=== PATIENT | male | born 1950 | race Caucasian/White ===

== ENCOUNTER 2020-04-11 14:32 | Observation (INO) | payer OTHER ==
[2020-04-11 16:14] VITALS: BMI 31.1
[2020-04-11 16:42] LABS: BASO % 0.8 % (0-2.0); EOS % 0.8 % (0-4.5); HEMATOCRIT 45.7 % (35.4-49); HEMOGLOBIN 15.5 GM/dL (11.7-16.9); LYMPH % 19.4 % (8-40); MCH 31.3 pg (25.7-33.7); MCHC 33.9 g/dl (32.0-35.9); MEAN CELL VOLUME 92.4 fl (80-96); MEAN PLT VOLUME 9.7 fl (7.5-11.1); MONO % 5.4 % (3.8-10.2); NEUT % 73.6 % (42.8-82.8); PLATELET COUNT 188 K/MM3 (134-434); RBC 4.95 M/mm3 (4.00-5.60); RDW 13.1 % (11.9-15.9); WHITE BLOOD COUNT 7.5 K/mm3 (4.0-10.0)
[2020-04-11 17:12] LABS: CHLORIDE 107 mmol/L (98-107); POTASSIUM 4.2 mmol/L (3.5-5.1); SODIUM 140 mmol/L (136-145)
[2020-04-11 17:14] LABS: ALBUMIN 3.8 g/dl (3.4-5.0); ANION GAP 9 MMOL/L (8-16); BLOOD UREA NITROGEN 15.4 mg/dL (7-18); CALCIUM 8.8 mg/dL (8.5-10.1); CO2 24 mmol/L (21-32); GLUCOSE,RANDOM 90 mg/dL (74-106)
[2020-04-11 17:17] LABS: CREATININE 0.7 mg/dL (0.55-1.3); SGOT/AST 13 U/L (15-37); SGPT/ALT 23 U/L (13-61)
[2020-04-11 17:19] LABS: BILIRUBIN,TOTAL 0.6 mg/dL (0.2-1); TOT PROT 7.2 g/dl (6.4-8.2)
[2020-04-11 17:20] LABS: ALK PHOS 70 U/L (45-117)
[2020-04-11 20:02] LABS: PH,URINE 5.5 (5.0-8.0); URINE APPEARANCE CLEAR; URINE BILIRUBIN NEGATIVE (NEGATIVE); URINE COLOR YELLOW; URINE GLUCOSE (UA) NEGATIVE (NEGATIVE); URINE KETONE NEGATIVE (NEGATIVE); URINE LEUK ESTERASE NEGATIVE (NEGATIVE); URINE NITRITE NEGATIVE (NEGATIVE); URINE PROTEIN NEGATIVE (NEGATIVE)
[2020-04-11] MEDS ORDERED: QUEtiapine FUMARATE 50 MG TABLET PO ONE (21:52)
[2020-04-11] MEDS ORDERED: QUEtiapine FUMARATE 25 MG TABLET ONE (22:12)
[2020-04-11] MEDS ORDERED: HEPARIN NA (PORCINE) 5,000 UNITS/ML 1ML VIAL ONE (22:58)
[2020-04-11] MEDS: HEPARIN NA (PORCINE) 5,000 UNITS/ML 1ML VIAL SQ SCH (23:20)
[2020-04-12] MEDS ORDERED: HEPARIN NA (PORCINE) 5,000 UNITS/ML 1ML VIAL ONE (06:43)
[2020-04-12] MEDS: HEPARIN NA (PORCINE) 5,000 UNITS/ML 1ML VIAL SQ SCH ×3 (06:50→21:22)
[2020-04-12 07:13] LABS: BASO % 0.7 % (0-2.0); EOS % 1.5 % (0-4.5); HEMATOCRIT 41.3 % (35.4-49); LYMPH % 31.3 % (8-40); MCH 31.2 pg (25.7-33.7); MEAN CELL VOLUME 91.9 fl (80-96); MONO % 7.6 % (3.8-10.2); NEUT % 58.9 % (42.8-82.8); PLATELET COUNT 159 K/MM3 (134-434); RDW 13.4 % (11.9-15.9); WHITE BLOOD COUNT 6.1 K/mm3 (4.0-10.0)
[2020-04-12 07:26] LABS: POTASSIUM 3.7 mmol/L (3.5-5.1)
[2020-04-12 07:29] LABS: BLOOD UREA NITROGEN 16.2 mg/dL (7-18); CALCIUM 8.7 mg/dL (8.5-10.1)
[2020-04-12 07:33] LABS: CREATININE 0.7 mg/dL (0.55-1.3)
[2020-04-12 07:35] LABS: CHOLESTEROL 216 mg/dL (50-200)
[2020-04-12 07:36] LABS: TRIGLYCERIDES 151 mg/dL (0-150)
[2020-04-12 07:37] LABS: LDL CHOLESTEROL (ONLY SJRH) 161 mg/dL (5-100)
[2020-04-12 07:38] LABS: HDL CHOLESTEROL 39 mg/dL (40-60)
[2020-04-12] MEDS: QUEtiapine FUMARATE 50 MG TABLET PO SCH ×2 (16:43→21:22)
[2020-04-12] MEDS ORDERED: ACETAMINOPHEN 325 MG TABLET (FP) PO PRN (16:52)
[2020-04-12] MEDS: metoPROLOL SUCCINATE 25 MG TAB.SR.24H (FP) PO SCH (18:39)
[2020-04-12] MEDS: ASPIRIN 81 MG CHEWABLE TABLETS PO SCH (18:39)
[2020-04-12] MEDS ORDERED: ATORVASTATIN CA 10 MG TABLET (FP) PO SCH (22:00)
[2020-04-12] MEDS ORDERED: DONEPEZIL HCL 10 MG TABLET (FP) PO SCH (22:00)
[2020-04-12] MEDS ORDERED: QUEtiapine FUMARATE 25 MG TABLET PO SCH (22:00)
[2020-04-13] MEDS: HEPARIN NA (PORCINE) 5,000 UNITS/ML 1ML VIAL SQ SCH ×2 (06:09→14:42)
[2020-04-13] MEDS: QUEtiapine FUMARATE 50 MG TABLET PO SCH ×2 (06:09→14:43)
[2020-04-13] MEDS: metoPROLOL SUCCINATE 25 MG TAB.SR.24H (FP) PO SCH (10:32)
[2020-04-13] MEDS: ASPIRIN 81 MG CHEWABLE TABLETS PO SCH (10:32)
[2020-04-13 14:29] VITALS: BP 111/67; PULSE 55; TEMP 98
== END 2020-04-13 16:50 ==
LOC: JER 14:32 → JERBED 22:17 → J4W 04-12 11:49
PROVIDERS: ADMIT Hospitalist; ATTEND Internal Medicine
DX: R53.1 Weakness (principal); R41.82 Altered mental status, unspecified; Z95.5 Presence of coronary angioplasty implant and graft; G30.1 Alzheimer's disease with late onset; F02.80 Dementia in other diseases classified elsewhere, unspecified severity, without behavioral disturbance, psychotic disturbance, mood disturbance, and anxiety; Z29.9 Encounter for prophylactic measures, unspecified; I10 Essential (primary) hypertension; E78.5 Hyperlipidemia, unspecified; I25.10 Atherosclerotic heart disease of native coronary artery without angina pectoris
CPT/HCPCS: 36415; 70450-TC; 71045-TC-FY; 80048; 80053; 80061; 81003; 82607; 83721; 84443; 84484; 85025; 87086; 93005; 93010; 93880-TC; 99285-25; C9803; G0378; J1644; U0003

== ENCOUNTER 2020-06-01 10:19 | Emergency (ER) | payer OTHER ==
[2020-06-01 10:51] VITALS: BMI 24.4
[2020-06-01 12:16] LABS: EOS % 1.1 % (0-4.5); HEMATOCRIT 39.1 % (35.4-49); HEMOGLOBIN 13.2 GM/dL (11.7-16.9); LYMPH % 23.2 % (8-40); MCH 31.8 pg (25.7-33.7); MCHC 33.8 g/dl (32.0-35.9); MEAN PLT VOLUME 10.3 fl (7.5-11.1); MONO % 6.9 % (3.8-10.2); NEUT % 67.8 % (42.8-82.8); PLATELET COUNT 143 K/MM3 (134-434); RBC 4.16 M/mm3 (4.00-5.60); RDW 13.1 % (11.9-15.9); WHITE BLOOD COUNT 5.2 K/mm3 (4.0-10.0)
[2020-06-01 12:34] LABS: POTASSIUM 4.2 mmol/L (3.5-5.1)
[2020-06-01 12:35] LABS: PH,URINE 5.5 (5.0-8.0); URINE APPEARANCE CLEAR; URINE BILIRUBIN NEGATIVE (NEGATIVE); URINE COLOR YELLOW; URINE GLUCOSE (UA) NEGATIVE (NEGATIVE); URINE KETONE NEGATIVE (NEGATIVE); URINE LEUK ESTERASE NEGATIVE (NEGATIVE); URINE NITRITE NEGATIVE (NEGATIVE); URINE PROTEIN NEGATIVE (NEGATIVE); URINE UROBILINOGEN 0.2 mg/dL (0.2-1.0)
[2020-06-01 12:36] LABS: ALBUMIN 3.6 g/dl (3.4-5.0); BLOOD UREA NITROGEN 23.5 mg/dL (7-18); CALCIUM 9.2 mg/dL (8.5-10.1)
[2020-06-01 12:39] LABS: CREATININE 0.8 mg/dL (0.55-1.3)
[2020-06-01 12:40] LABS: BILIRUBIN,TOTAL 0.5 mg/dL (0.2-1); TOT PROT 6.5 g/dl (6.4-8.2)
[2020-06-01 16:27] VITALS: BP 125/74; PULSE 65; TEMP 98.2
== END 2020-06-01 16:31 ==
LOC: JER 10:19
DX: F91.8 Other conduct disorders (principal)
CPT/HCPCS: 36415; 80053; 81003; 85025; 93005; 93010; 99284-25

== ENCOUNTER 2021-02-11 16:12 | Emergency (ER) | payer OTHER ==
[2021-02-11 16:44] VITALS: BMI 24.4
[2021-02-11 19:26] LABS: BASO % 0.8 % (0-2.0); EOS % 1.6 % (0-4.5); HEMATOCRIT 37.2 % (35.4-49); HEMOGLOBIN 12.8 GM/dL (11.7-16.9); LYMPH % 35.8 % (8-40); MCH 31.8 pg (25.7-33.7); MCHC 34.3 g/dl (32.0-35.9); MEAN CELL VOLUME 92.8 fl (80-96); MEAN PLT VOLUME 10.2 fl (7.5-11.1); MONO % 9.4 % (3.8-10.2); NEUT % 52.4 % (42.8-82.8); PLATELET COUNT 150 10^3/uL (134-434); RBC 4.01 M/mm3 (4.00-5.60); RDW 13.5 % (11.9-15.9); WHITE BLOOD COUNT 6.3 K/mm3 (4.0-10.0)
[2021-02-11 19:43] LABS: PH,URINE 5.5 (5.0-8.0); URINE APPEARANCE CLEAR; URINE BILIRUBIN NEGATIVE (NEGATIVE); URINE COLOR YELLOW; URINE GLUCOSE (UA) NEGATIVE (NEGATIVE); URINE KETONE TRACE (NEGATIVE); URINE LEUK ESTERASE NEGATIVE (NEGATIVE); URINE NITRITE NEGATIVE (NEGATIVE); URINE PROTEIN NEGATIVE (NEGATIVE)
[2021-02-11 19:47] LABS: CHLORIDE 109 mmol/L (98-107); SODIUM 141 mmol/L (136-145)
[2021-02-11 19:49] LABS: ALBUMIN 3.2 g/dl (3.4-5.0); ANION GAP 7 MMOL/L (8-16); BLOOD UREA NITROGEN 27.8 mg/dL (7-18); CALCIUM 8.1 mg/dL (8.5-10.1); CO2 25 mmol/L (21-32); GLUCOSE,RANDOM 93 mg/dL (74-106)
[2021-02-11 19:51] LABS: CREATININE 0.7 mg/dL (0.55-1.3); SGOT/AST 15 U/L (15-37); SGPT/ALT 24 U/L (13-61)
[2021-02-11 19:54] LABS: BILIRUBIN,TOTAL 0.2 mg/dL (0.2-1); TOT PROT 6.3 g/dl (6.4-8.2)
[2021-02-11 19:55] LABS: ALK PHOS 67 U/L (45-117)
[2021-02-11] MEDS ORDERED: HALOPERIDOL LACTATE 5 MG/ML ONE (21:08)
[2021-02-11] MEDS ORDERED: LORazepam 2 MG/ML SDV VIAL ONE (21:08)
[2021-02-11] MEDS ORDERED: LORazepam 2 MG/ML SDV VIAL IVPUSH ONE (21:08)
[2021-02-11] MEDS ORDERED: HALOPERIDOL LACTATE 5 MG/ML IM ONE (21:08)
[2021-02-11] MEDS ORDERED: OLANZapine 2.5 MG TABLET PO ONE (21:39)
[2021-02-12] MEDS ORDERED: OLANZapine 2.5 MG TABLET PO ONE (02:00)
[2021-02-12] MEDS ORDERED: QUEtiapine FUMARATE 200 MG TABLET PO ONE (02:00)
[2021-02-12 05:14] VITALS: BP 134/76; PULSE 71; TEMP 97.6
[2021-02-12] MEDS ORDERED: QUEtiapine FUMARATE 100 MG TABLET (FP) ONE (05:20)
[2021-02-12] MEDS ORDERED: cloNIDine HCL 0.1 MG TABLET ONE (06:13)
== END 2021-02-12 16:28 | disposition home or self-care (01) ==
LOC: JER 16:12
PROC: 3E033GC Introduction of Other Therapeutic Substance into Peripheral Vein, Percutaneous Approach (ICD-10-PCS; principal; 2021-02-11)
PROC: 3E023GC Introduction of Other Therapeutic Substance into Muscle, Percutaneous Approach (ICD-10-PCS; principal; 2021-02-11)
DX: R46.89 Other symptoms and signs involving appearance and behavior (principal); R45.1 Restlessness and agitation
CPT/HCPCS: 36415; 71045-TC-FY; 80053; 81003; 82550; 82962; 84484; 85025; 87086; 93005; 93010; 99285-25; C9803; U0003; U0005